=== PATIENT | female | born 1995 | race American Indian/Alaskan Native ===

== ENCOUNTER 2017-04-01 04:09 | Inpatient (IN) | payer OTHER ==
[2017-04-01 04:10] VITALS: BMI 28.8
[2017-04-01] MEDS ORDERED: Sodium Chloride 0.9% 1,000 ML IV STA (04:51)
--- NOTE | 2017-04-01 04:51 | ED PDOC ---
HPI: Abdomen Time Seen by Provider: 04/01/17 04:16 Chief Complaint (Nursing): Abdominal Pain Chief Complaint (Provider): Abdominal Pain History Per: Patient Additional Complaint(s): 21 F with no significant PMH presents to the ED with complaints of severe abdominal pain and nausea at this time. 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 Dr. Asencio was consulted while pt at [facility] and Pt was determined to be stable for discharge at that time. Pt was to follow up with Dr. Asencio tomorrow (now today) to likely be takent o OR if pain continued. Pt states that her symptoms started 3 days ago after she ate out from a restaurant. She states that her pain is lauren umbilical, non radiating, 9/10 in severity. She also had >10 times of non bloody, non bilious vomiting. Denies any fevers, chills, or diarrhea. Denies any roland, dizziness, sob, cp, urinary or bm changes. Past Medical History Reviewed: Nursing Documentation, Vital Signs Vital Signs: Last Vital Signs Temp 98.2 F 04/01/17 04:22 Pulse 60 04/01/17 04:22 Resp 16 04/01/17 04:22 BP 115/58 L 04/01/17 04:22 Pulse Ox 99 04/01/17 04:22 - Medical History PMH: No Chronic Diseases - Surgical History Surgical History: No Surg Hx - Family History Family History: States: No Known Family Hx - Living Arrangements Living Arrangements: With Family - Social History Current smoker - smoking cessation education provided: No Alcohol: Social Drugs: Denies - Immunization History Hx Tetanus Toxoid Vaccination: No Hx Influenza Vaccination: No Hx Pneumococcal Vaccination: No - Home Medications Home Medications: Ambulatory Orders Medication Instructions Recorded No Known Home Med 03/31/17 - Allergies Allergies/Adverse Reactions: Allergies Allergy/AdvReac Type Severity Reaction Status Date / Time No Known Allergies Allergy Verified 03/31/17 05:42 Review of Systems ROS Statement: Except As Marked, All Systems Reviewed And Found Negative Gastrointestinal: Positive for: Nausea, Vomiting, Abdominal Pain Physical Exam - Reviewed Nursing Documentation Reviewed: Yes Vital Signs Reviewed: Yes - Physical Exam Appears: Positive for: Non-toxic, No Acute Distress, Uncomfortable Head Exam: Positive for: ATRAUMATIC, NORMAL INSPECTION, NORMOCEPHALIC Skin: Positive for: Normal Color, Warm, DRY Eye Exam: Positive for: EOMI, Normal appearance, PERRL ENT: Positive for: Normal ENT Inspection Neck: Positive for: Normal, Painless ROM Cardiovascular/Chest: Positive for: Regular Rate, Rhythm Respiratory: Positive for: CNT, Normal Breath Sounds Gastrointestinal/Abdominal: Positive for: Bowel Sounds, Soft, Tenderness (Lauren umbilical and LLQ). Negative for: Distended, Guarding Back: Positive for: Normal Inspection Extremity: Positive for: Normal ROM Neurologic/Psych: Positive for: Alert, Oriented - ECG O2 Sat by Pulse Oximetry: 99 Medical Decision Making Medical Decision Making: IV access established and treatment initiated with IVF, Zofran and Morphine Pt last ate around 23:30 last night, advised to remain NPO at this time. Diagnostics ordered including US to r/o Ovarian Torsion Case discussed with mother superior on-call, Dr. Asencio, who advised admission at this time with OR later in the am. FP resident presented to ED for bedside exam and to arrange admission Disposition - Clinical Impression Clinical Impression: Teratoma, Abdominal pain - Patient ED Disposition Is Patient to be Admitted: Yes - Disposition Disposition Time: 04:59 Condition: STABLE - Pt Status Changed To: Hospital Disposition Of: Inpatient - Admit Certification Admit to Inpatient:: After my assessment, the patient will require hospitalization for at least two midnights. This is because of the severity of symptoms shown, intensity of services needed, and/or the medical risk in this patient being treated as an outpatient. - POA Present On Arrival: None
[2017-04-01 05:29] LABS: BASO % 0.3 % (0.0-2.0); HEMATOCRIT 32.8 % (34.0-47.0); LYMPH % 7.1 % (20.0-40.0); MEAN CELL VOLUME 81.8 fl (81.0-99.0); MEAN CORPUSCULAR HEMOGLOBIN 25.8 pg (27.0-31.0); MEAN CORPUSCULAR HGB CONC 31.5 g/dL (33.0-37.0); MEAN PLATELET VOLUME 10.7 fl (7.2-11.7); MONO # 1.2 K/uL (0.0-0.8); MONO % 8.7 % (0.0-10.0); NEUT # 11.8 K/uL (1.8-7.0); NEUT % 83.9 % (50.0-75.0); PLATELET COUNT 280 K/uL (130-400); RED CELL DISTRIBUTION WIDTH 13.3 % (11.5-14.5)
--- NOTE | 2017-04-01 05:32 | CP.PCM.HP ---
<Keo Paulson - Last Filed: 04/01/17 05:57> History of Present Illness - History of Present Illness History of Present Illness: - 21 YO F presents to the ER w/ severe abdominal pain. Pain is "twisting" in nature. Starts from the right lower quadrant to the epigastric region of the stomach. Patient quantifies the pain as a 9/10, but does not appear in distress. Patient states that the pain started 3 days ago after she at out at a restaurant. At home patient states she had > 10 episodes of nausea and vomiting. Vomit was non bloody non billious. She has been able to tolerate PO intake of soups and keep it down. Denies any fever, diarrhea. - She had initially went to [facility] last night and was found to have a [address] scan. She had been discharged and was advised to follow up in the morning in [place] w/ Dr. Asencio if pain continued. Pt claims she was given antibiotics from [facility] and took two of the pills but can not recall the name. She also took 2 ibuprofens which did not provide any relief. She also has had constipation for the last two days, where as normally she has regular bowl movements. - Her last meal was at 10pm last night, since then she has not had anything. PMH: None PSH: None Allergy: None Medicine: None F/H: DM in mother S/H: Alcohol socially, Marijuana regularly, one joint a day. Sexually active with one partner currently, inconsistency uses condoms. Denies any history of sexually transmitted diseases. Has regular menstral periods. LMP was 02/28/17. ER course: - NPO - Morphine 4mg - Zofran 4mg - IV fluids - BHCG - CMP - PT/PTT/INR - Transvagnal U/S Present on Admission - Present on Admission Any Indicators Present on Admission: No Past Patient History - Infectious Disease Hx of Infectious Diseases: None - Past Social History Alcohol: Social Drugs: Cannabis - PSYCHIATRIC Hx Substance Use: No - SURGICAL HISTORY Hx Surgeries: No - ANESTHESIA Hx Anesthesia: No Meds Allergies/Adverse Reactions: Allergies Allergy/AdvReac Type Severity Reaction Status Date / Time No Known Allergies Allergy Verified 03/31/17 05:42 Physical Exam - Constitutional Appears: No Acute Distress, Agitated - Head Exam Head Exam: NORMAL INSPECTION - Eye Exam Eye Exam: EOMI, Normal appearance, PERRL - Neck Exam Neck exam: Positive for: Normal Inspection - Respiratory Exam Respiratory Exam: Clear to Auscultation Bilateral, NORMAL BREATHING PATTERN. absent: Rales, Rhonchi, Wheezes - Cardiovascular Exam Cardiovascular Exam: REGULAR RHYTHM, +S1, +S2 - GI/Abdominal Exam GI & Abdominal Exam: Normal Bowel Sounds, Soft, Tenderness (Chi[place] umbilical and right lower quadrant tenderness) - Neurological Exam Neurological exam: Alert, CN II-XII Intact, Oriented x3 - Psychiatric Exam Psychiatric exam: Normal Affect, Normal Mood - Skin Skin Exam: Normal Color, Warm Results - Vital Signs Recent Vital Signs: Last Vital Signs Temp 98.2 F 04/01/17 04:22 Pulse 60 04/01/17 04:22 Resp 16 04/01/17 04:22 BP 115/58 L 04/01/17 04:22 Pulse Ox 99 04/01/17 04:59 - Labs Result Diagrams: 04/01/17 05:00 04/01/17 05:00 Assessment & Plan - Assessment and Plan (Free Text) Assessment: 21 YO F who was recently found to have a teratoma is here complaining of severe abdominal pain and vomiting. 1) Abdominal Pain - Most likely secondary to teratoma - NPO - IV access - Surgery scheduled for AM - F/U with labs and imaging studies * Case has been discussed with Dr. Asencio <Lisbeth Asencio - Last Filed: 04/01/17 10:38> Results - Vital Signs Recent Vital Signs: Last Vital Signs Temp 98.2 F 04/01/17 04:22 Pulse 60 04/01/17 04:22 Resp 16 04/01/17 04:22 BP 115/58 L 04/01/17 04:22 Pulse Ox 99 04/01/17 04:59 - Labs Result Diagrams: 04/01/17 05:00 04/01/17 05:00 Labs: Laboratory Results - last 24 hr 04/01/17 04/01/17 04/01/17 05:00 05:00 05:00 WBC 14.0 H RBC 4.01 Hgb 10.3 L Hct 32.8 L MCV 81.8 MCH 25.8 L MCHC 31.5 L RDW 13.3 Plt Count 280 MPV 10.7 Neut % (Auto) 83.9 H Lymph % (Auto) 7.1 L [place] % (Auto) 8.7 Eos % (Auto) 0.0 Baso % (Auto) 0.3 Neut # 11.8 H Lymph # 1.0 [place] # 1.2 H Eos # 0.0 Baso # 0.0 PT INR APTT Sodium 138 Potassium 3.8 Chloride 103 Carbon Dioxide 24 Anion Gap 15 BUN 12 Creatinine 0.6 L Est GFR ( Amer) > 60 Est GFR (Non-Af Amer) > 60 Random Glucose 102 Calcium 9.1 Total Bilirubin 0.5 AST 25 ALT 31 Alkaline Phosphatase 70 Total Protein 7.5 Albumin 4.1 Globulin 3.4 Albumin/Globulin Ratio 1.2 Beta HCG, Quant < 2.39 Blood Type O POSITIVE Antibody Screen Negative BBK History Checked No verified bt 04/01/17 05:00 WBC RBC Hgb Hct MCV MCH MCHC RDW Plt Count MPV Neut % (Auto) Lymph % (Auto) [place] % (Auto) Eos % (Auto) Baso % (Auto) Neut # Lymph # [place] # Eos # Baso # PT 11.2 INR 1.08 APTT 31.9 Sodium Potassium Chloride Carbon Dioxide Anion Gap BUN Creatinine Est GFR ( Amer) Est GFR (Non-Af Amer) Random Glucose Calcium Total Bilirubin AST ALT Alkaline Phosphatase Total Protein Albumin Globulin Albumin/Globulin Ratio Beta HCG, Quant Blood Type Antibody Screen BBK History Checked Assessment & Plan - Assessment and Plan (Free Text) Assessment: OB Hospitalist Addendum: 21 yo G0 LMP around 02/28/2017 w/ right-sided abdominal pain w/ a 9.3 cm ovarian teratoma seen on CT scan and pelvic u/s. Pt admitted and the plan is to take the pt to the OR for laparoscopic cystectomy, possible salpingo-oophorectomy, possible laparotomy. Plan discussed with the pt and her family. All questions answered. Consents signed. (ES)
[2017-04-01 05:38] LABS: ALB/GLOB RATIO 1.2 (1.0-2.1); ALKALINE PHOSPHATASE 70 U/L (38-126); ALT/SGPT 31 U/L (9-52); AST/SGOT 25 U/L (14-36); BILIRUBIN,TOTAL 0.5 mg/dl (0.2-1.3); BLOOD UREA NITROGEN 12 mg/dl (7-17); CALCIUM 9.1 mg/dL (8.4-10.2); CARBON DIOXIDE 24 mmol/L (22-30); CHLORIDE 103 mmol/L (98-107); GFR AFRICAN-AMERICAN > 60; GLUCOSE,RANDOM 102 mg/dL (65-105); POTASSIUM 3.8 MMOL/L (3.6-5.0); SODIUM 138 mmol/l (132-148); TOTAL PROTEIN 7.5 G/DL (6.3-8.2)
[2017-04-01 05:49] LABS: PARTIAL THROMBOPLASTIN TIME 31.9 SECONDS (23.3-32.5)
[2017-04-01 07:30] LABS: NEUTROPHIL 81 % (42-75); TOTAL CELLS COUNTED 100
[2017-04-01 07:31] LABS: LARGE PLATELETS PRESENT
--- NOTE | 2017-04-01 07:36 | US ---
EXAM: US Pelvis, Transvaginal CLINICAL HISTORY: 21 years old, female; Pain; Pelvic pain; Additional info: R/O torsion TECHNIQUE: Real-time transvaginal pelvic ultrasound (complete) with image documentation. Transvaginal imaging was used for better evaluation of the endometrium and adnexa. EXAM DATE/TIME: 04/01/2017 4:48 AM COMPARISON: CT - ABD PELVIS IV CONTRAST ONLY 03/31/2017 7:08:11 AM FINDINGS: Uterus/cervix: Anteverted uterus measures 6 point a 3.8 x 2.7 cm. Endometrium measures 1.1 cm in thickness. No myometrial mass. Right ovary: Right ovary measures 3.8 x 3.9 1.8 cm. Subcentimeter follicles. Eccentric echogenic focus of about 1.5 x 1.6 cm. Normal blood flow. Left ovary: Left ovary not visualized. Cystic structure in midline and to the left on transabdominal images of about 2.2 cm. Appears eccentrically located in a larger complex structure. Cystic lesion not clearly identified endovaginally. On endovaginal study, there is a mostly echogenic, nonvascular structure estimate about 9 x 7 cm. Poorly defined posterior and lateral margins. Free fluid: Small to moderate amount of fluid in cul-de-sac and right adnexa. Low level echoes within the fluid. Bladder: Empty bladder which cannot be evaluated with this probe. IMPRESSION: 1. Poorly demonstrated complex pelvic mass, corresponding to large dermoid on CT, better defined by CT. 2. Echogenic free fluid, hemorrhagic, similar to the CT findings. 3. Eccentric echogenic focus in the right ovary, may be hemorrhagic cyst or involuting follicle. Given other sonographic and CT findings, may represent hematoma. 4. Nonvisualization of left ovary.
[2017-04-01] MEDS ORDERED: Propofol 10 mg/ml Inj (20 ML) ONE (10:00)
[2017-04-01] MEDS ORDERED: Midazolam 2 MG/2 ML VIAL ONE (10:00)
[2017-04-01] MEDS ORDERED: Rocuronium 10 mg/ml (5 ml) ONE (10:00)
[2017-04-01] MEDS ORDERED: Lidocaine 4% (Laryng-O-Jet) Kit MM ONE (10:04)
[2017-04-01] MEDS ORDERED: Sevoflurane - Inhalation Anesthetic Liq (250 ml) ONE (11:05)
[2017-04-01] MEDS ORDERED: Bupivacaine 0.5% Inj(30mL) ONE (11:19)
[2017-04-01] MEDS ORDERED: Dexamethasone 4 mg/1 ml ONE (11:20)
[2017-04-01] MEDS ORDERED: Neostigmine Methylsulfate 3mg/3ml Syringe IV ONE (12:26)
[2017-04-01] MEDS ORDERED: Lactated Ringer's 1,000 ML IV ONE ×4 (12:27→14:45)
[2017-04-01] MEDS ORDERED: Sodium Chloride 0.9% 1,000 ML IV ONE (12:31)
[2017-04-01] MEDS ORDERED: HYDROmorphone 0.5 mg/0.5 ml ISec ONE (13:30)
[2017-04-01] MEDS ORDERED: HYDROmorphone 0.5 mg/0.5 ml ISec IVP PRN (13:35)
[2017-04-01] MEDS ORDERED: HYDROmorphone 0.5 mg/0.5 ml ISec IVP ONE (13:55)
[2017-04-01] MEDS ORDERED: Lactated Ringer's 1,000 ML IV SCH (15:15)
--- NOTE | 2017-04-01 20:05 | OP ---
PROCEDURE DATE: 04/01/2017 PREOPERATIVE DIAGNOSES: This is a 21-year-old G0 with right-sided abdominal pain with a 9 cm dermoid cyst seen on CT scan. POSTOPERATIVE DIAGNOSES: Right ovarian dermoid, right adnexal necrosis secondary to right ovarian torsion. PROCEDURE: An attempted laparoscopy, converted to an open right salpingo- oophorectomy. COMPLICATIONS: None. ESTIMATED BLOOD LOSS: About 25 mL. SURGEON: Artie Asencio MD [employer]: Dr. Shepard the hospitalist. Dr. Shepard was the surgical specialist and participated in the surgery for the entire duration of the case. She helped create exposure. She also helped maintain hemostasis, operated throughout the case on the side of the patient that was across from her. This case could not have been completed without her assistance SECOND [employer]: Dr. Yuly Gracia, PGY-1 FINDINGS: A normal appearing uterus, sounded to about 3 inches, normal appearing left ovary and tube, a large congested, necrotic-appearing purplish- red right ovarian mass and tube. The mass was about 13 cm in its largest diameter. The patient had multiple pink ulcerated lesions on her labia and in her groin area as well as under her breasts. DESCRIPTION OF PROCEDURE: The patient was taken to the operating room with IV running and placed in the dorsal supine position. She was placed under general anesthesia. She was then prepped and draped in the usual sterile fashion in the dorsal lithotomy position. A time-out had been done. A speculum was then placed in the vagina and a tenaculum was placed at the anterior lip of the cervix. The cervix was then gently dilated and sounded to about 3 inches. The uterine manipulator was placed into the uterus. Attention was then turned to the patient's abdomen. Following the injection of 0.5 percent Marcaine, a 5 mm vertical incision was placed infraumbilically The Veress needle was introduced into the peritoneum. Placement of the needle was confirmed using the saline drop method. Pneumoperitoneum was established by insufflating the abdomen to 18 mmHg. The laparoscopic sheath and trocar were then placed into the abdominal cavity. The trocar was removed and the laparoscope was inserted. A large purplish mass dominating the entire view was visualized and it was decided to convert the case to a laparotomy. Pneumoperitoneum was evacuated. All instruments were removed from the abdomen. A Pfannenstiel skin incision was then made with the scalpel and carried through to the underlying layer of fascia with the Bovie. The fascia was incised in the midline and the incision was extended laterally with the Bovie. The inferior aspect of the fascial incision was grasped with the Jacque clamps, elevated, and the underlying rectus muscles were dissected bluntly and with the Decker scissors. Attention was then turned to the superior aspect of this incision, which in a similar fashion was grasped, tented up with the Jacque clamps and the rectus muscles were dissected off bluntly and with the Bovie. The rectus muscles were then in the midline and the peritoneum was entered digitally. The peritoneal incision was extended so that the large mass could be delivered through the incision. Pelvic washings were collected and sent to pathology. Two Nikolas clamps were then placed across the large pedicle of the right adnexa. The mass was then removed using a scalpel. The pedicle was suture suture-ligated a few times with 0 Vicryl. Hemostasis was noted. The uterus and the left adnexa were then examined. The abdomen was well irrigated. The fascia was then closed with 0 Vicryl. The subcutaneous fat was well irrigated. The Bovie was applied to small bleeders. The space of the fat was then closed with a running stitch of 2-0 plain gut. The skin was then closed in a subcuticular fashion using 4-0 Monocryl. The umbilical incision was approximated w/ Dermabond. The patient received 2 grams of Ancef when the case was converted to a laparotomy. The patient tolerated the procedure well. Sponge, lap, and needle counts were correct. The patient was taken to the recovery room in stable condition. Artie Asencio MD cc: [id number] TT: 04/01/2017 20:04:53 toan CROWLEY
[2017-04-02 00:38] VITALS: RESP 20
[2017-04-02 08:04] VITALS: BP 121/73; PULSE 71; TEMP 97.9; O2SAT 100
[2017-04-02] MEDS ORDERED: Oxycodone/Acetaminophen 5/325 mg Tab PO PRN ×2 (09:03)
[2017-04-02 11:02] LABS: BASO % 0.3 % (0.0-2.0); EOS % 0.1 % (0.0-4.0); HEMATOCRIT 26.6 % (34.0-47.0); LYMPH # 1.7 K/uL (1.0-4.3); LYMPH % 11.4 % (20.0-40.0); MEAN CORPUSCULAR HEMOGLOBIN 25.7 pg (27.0-31.0); MEAN CORPUSCULAR HGB CONC 31.3 g/dL (33.0-37.0); MEAN PLATELET VOLUME 10.4 fl (7.2-11.7); MONO # 1.6 K/uL (0.0-0.8); MONO % 10.6 % (0.0-10.0); NEUT # 11.9 K/uL (1.8-7.0); NEUT % 77.6 % (50.0-75.0); RED CELL DISTRIBUTION WIDTH 13.5 % (11.5-14.5); WHITE BLOOD COUNT 15.3 K/uL (4.8-10.8)
--- NOTE | 2017-04-02 11:25 | CP.PCM.PN ---
<Luiza Elaine - Last Filed: 04/02/17 11:21> Subjective - Date & Time of Evaluation Date of Evaluation: 04/02/17 Time of Evaluation: 09:00 - Subjective Subjective: POD # 1 Patient seen and examined at bedside. Reports pain managed with medication, has flatus, denies bowel movement. Normal urine output into tolliver catheter with 77 ml/hr documented overnight-clear yellow. Patient is tolerating liquid diet. Denies nausea, vomiting, SOB, chest pain, weakness, dizziness or headache. Reports she has an appetite this AM. She has no other concerns or complaints at this time. Objective - Vital Signs/Intake and Output Vital Signs (last 24 hours): Temp Pulse Resp BP Pulse Ox 97.9 F 71 20 121/73 100 04/02/17 08:02 04/02/17 08:02 04/02/17 08:02 04/02/17 08:02 04/02/17 08:02 Intake and Output: 04/02/17 04/02/17 06:59 18:59 Intake Total 1000 Output Total 1150 Balance -150 - Medications Medications: Current Medications Ibuprofen (Motrin Tab) 600 mg PO Q6 PRN PRN Reason: pain 1-3 Ondansetron HCl (Zofran Inj) 4 mg IVP Q6 PRN PRN Reason: Nausea/Vomiting Oxycodone/Acetaminophen (Percocet 5/325 Mg Tab) 1 tab PO Q4 PRN PRN Reason: pain 4-7 Stop: 04/05/17 09:04 Oxycodone/Acetaminophen (Percocet 5/325 Mg Tab) 2 tab PO Q4 PRN PRN Reason: pain 8-10 Stop: 04/05/17 09:04 - Labs Labs: 04/02/17 10:55 04/01/17 05:00 PT 11.2 SECONDS (9.6-11.2) 04/01/17 05:00 INR 1.08 (0.92-1.08) 04/01/17 05:00 APTT 31.9 SECONDS (23.3-32.5) 04/01/17 05:00 - Constitutional Appears: Well, Non-toxic, No Acute Distress - Head Exam Head Exam: ATRAUMATIC, NORMOCEPHALIC - Eye Exam Eye Exam: EOMI. absent: Scleral icterus - ENT Exam ENT Exam: Mucous Membranes Moist - Neck Exam Neck Exam: Full ROM - Respiratory Exam Respiratory Exam: Clear to Ausculation Bilateral, NORMAL BREATHING PATTERN - Cardiovascular Exam Cardiovascular Exam: REGULAR RHYTHM, +S1, +S2. absent: Gallop, Rubs, Murmur - GI/Abdominal Exam GI & Abdominal Exam: Soft, Tenderness (mild tenderness to palpation near lower abdominal incision which was clean/dry/intact), Normal Bowel Sounds - Extremities Exam Extremities Exam: Full ROM. absent: Pedal Edema - Back Exam Back Exam: absent: CVA tenderness (L), CVA tenderness (R) - Neurological Exam Neurological Exam: Alert, Awake, CN II-XII Intact, Oriented x3 - Psychiatric Exam Psychiatric exam: Normal Affect, Normal Mood - Skin Skin Exam: Dry, Intact Assessment and Plan - Assessment and Plan (Free Text) Assessment: A: 21 yr old G0 s/p Open right salpingo-oophorectomy POD #1, asymptomatic anemia (Hgb 8.3 this AM), tolerating PO diet Plan: P: -Pain management with Percocet and Motrin PRN -Discontinue tolliver -Bed to chair, encouraged ambulation as tolerated -Regular diet -D/c IV fluids -Heplock -Patient may be discharged once pain is controlled, is tolerating regular PO diet, ambulating without difficulty (prescriptions in chart Motrin 600mg PO Q6 PO PRN mild pain, Percocet 5/325mg PO Q4 PRN moderate pain disp # 20 tabs, Ferrous sulfate 325 mg PO once daily, follow up with your obgyn of choice within 2 weeks) <Lisbeth Asencio - Last Filed: 04/02/17 23:02> Objective - Vital Signs/Intake and Output Vital Signs (last 24 hours): Temp Pulse Resp BP Pulse Ox 97.9 F 71 20 121/73 100 04/02/17 08:02 04/02/17 08:02 04/02/17 08:02 04/02/17 08:02 04/02/17 08:02 - Labs Labs: 04/02/17 10:55 04/01/17 05:00 PT 11.2 SECONDS (9.6-11.2) 04/01/17 05:00 INR 1.08 (0.92-1.08) 04/01/17 05:00 APTT 31.9 SECONDS (23.3-32.5) 04/01/17 05:00 Assessment and Plan - Assessment and Plan (Free Text) Plan: OB Addendum: Pt seen and examined by me. Agree w/ above. POD 1 s/p L/s converted to open RSO for large necrotic right ovarian mass, doing well. Encouraged OOB. Pt may be advanced to regular diet as tolerated. Pt likely to be discharged home today. Rx's motrin, percocet, and ferrous sulfate placed in the chart. (ES)
--- NOTE | 2017-04-02 14:24 | CP.PCM.DIS ---
Provider - Provider Date of Admission: 04/01/17 04:50 Attending physician: Lisbeth Asencio MD Primary care physician: Dr. Diehl Time Spent in preparation of Discharge (in minutes): 30 Diagnosis - Discharge Diagnosis (1) Dermoid cyst of right ovary Status: Resolved Priority: Medium Hospital Course - Lab Results Lab Results: Most Recent Lab Values WBC 15.3 K/uL (4.8-10.8) H 04/02/17 10:55 RBC 3.25 Mil/uL (3.80-5.20) L 04/02/17 10:55 Hgb 8.3 g/dL (12.0-16.0) L D 04/02/17 10:55 Hct 26.6 % (34.0-47.0) L 04/02/17 10:55 MCV 82.0 fl (81.0-99.0) 04/02/17 10:55 MCH 25.7 pg (27.0-31.0) L 04/02/17 10:55 MCHC 31.3 g/dL (33.0-37.0) L 04/02/17 10:55 RDW 13.5 % (11.5-14.5) 04/02/17 10:55 Plt Count 249 K/uL (130-400) 04/02/17 10:55 MPV 10.4 fl (7.2-11.7) 04/02/17 10:55 Neut % (Auto) 77.6 % (50.0-75.0) H 04/02/17 10:55 Lymph % (Auto) 11.4 % (20.0-40.0) L 04/02/17 10:55 [place] % (Auto) 10.6 % (0.0-10.0) H 04/02/17 10:55 Eos % (Auto) 0.1 % (0.0-4.0) 04/02/17 10:55 Baso % (Auto) 0.3 % (0.0-2.0) 04/02/17 10:55 Neut # 11.9 K/uL (1.8-7.0) H 04/02/17 10:55 Lymph # 1.7 K/uL (1.0-4.3) 04/02/17 10:55 [place] # 1.6 K/uL (0.0-0.8) H 04/02/17 10:55 Eos # 0.0 K/uL (0.0-0.7) 04/02/17 10:55 Baso # 0.0 K/uL (0.0-0.2) 04/02/17 10:55 Neutrophils % (Manual) 81 % (42-75) H 04/01/17 05:00 Lymphocytes % (Manual) 10 % (20-50) L 04/01/17 05:00 Monocytes % (Manual) 9 % (0-10) 04/01/17 05:00 Platelet Estimate Normal (NORMAL) 04/01/17 05:00 Large Platelets Present 04/01/17 05:00 RBC Morphology Normal (NORMAL) 04/01/17 05:00 PT 11.2 SECONDS (9.6-11.2) 04/01/17 05:00 INR 1.08 (0.92-1.08) 04/01/17 05:00 APTT 31.9 SECONDS (23.3-32.5) 04/01/17 05:00 Sodium 138 mmol/l (132-148) 04/01/17 05:00 Potassium 3.8 MMOL/L (3.6-5.0) 04/01/17 05:00 Chloride 103 mmol/L (98-107) 04/01/17 05:00 Carbon Dioxide 24 mmol/L (22-30) 04/01/17 05:00 Anion Gap 15 (10-20) 04/01/17 05:00 BUN 12 mg/dl (7-17) 04/01/17 05:00 Creatinine 0.6 mg/dL (0.7-1.2) L 04/01/17 05:00 Est GFR ( Amer) > 60 04/01/17 05:00 Est GFR (Non-Af Amer) > 60 04/01/17 05:00 Random Glucose 102 mg/dL (65-105) 04/01/17 05:00 Calcium 9.1 mg/dL (8.4-10.2) 04/01/17 05:00 Total Bilirubin 0.5 mg/dl (0.2-1.3) 04/01/17 05:00 AST 25 U/L (14-36) 04/01/17 05:00 ALT 31 U/L (9-52) 04/01/17 05:00 Alkaline Phosphatase 70 U/L (38-126) 04/01/17 05:00 Total Protein 7.5 G/DL (6.3-8.2) 04/01/17 05:00 Albumin 4.1 g/dL (3.5-5.0) 04/01/17 05:00 Globulin 3.4 gm/dL (2.2-3.9) 04/01/17 05:00 Albumin/Globulin Ratio 1.2 (1.0-2.1) 04/01/17 05:00 Beta HCG, Quant < 2.39 mIU/mL 04/01/17 05:00 Blood Type O POSITIVE 04/01/17 05:00 Antibody Screen Negative 04/01/17 05:00 Crossmatch See Detail 04/01/17 05:00 BBK History Checked No verified bt 04/01/17 05:00 - Hospital Course Hospital Course: 21 yr old F G0 today POD # 1 s/p right salpingo-oophorectomy who presented to [facility] ER on 04/01/17 with severe abdominal pain and nausea. 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 At [facility] patient was taken to OR and a laparoscopic removal of the teratoma was attempted, however, due to the mass dominating the entire field of vision, the procedure was converted to an open right salpingo-oophorectomy. Patient had normal recovery after the procedure, today is tolerating PO diet, ambulating without difficulty, pain tolerated with medication, and with no concerns or complaints at this time. Patient will follow up with her obgyn and PCP as outpatient within 2 weeks. - Date & Time of H&P Date of H&P: 04/01/17 Time of H&P: 05:20 Discharge Exam - Head Exam Head Exam: ATRAUMATIC, NORMOCEPHALIC - Eye Exam Eye Exam: EOMI, Normal appearance - ENT Exam ENT Exam: Mucous Membranes Moist - Neck Exam Neck exam: Full Rom - Respiratory Exam Respiratory Exam: Clear to PA & Lateral, NORMAL BREATHING PATTERN - Cardiovascular Exam Cardiovascular Exam: REGULAR RHYTHM, RRR, +S1, +S2 - GI/Abdominal Exam GI & Abdominal Exam: Normal Bowel Sounds, Soft, Tenderness (mild tenderness to palpation in area surrounding lower abd incision which is clean/dry/intact) - Extremities Exam Extremities exam: full ROM (no pedal edema) - Back Exam Back exam: FULL ROM. absent: CVA tenderness (L), CVA tenderness (R) - Neurological Exam Neurological exam: Alert, CN II-XII Intact, Oriented x3 - Psychiatric Exam Psychiatric exam: Normal Affect, Normal Mood - Skin Skin Exam: Dry, Intact, Warm Discharge Plan - Discharge Medications Prescriptions: Ferrous Sulfate 325 mg PO DAILY #60 tablet Ibuprofen [Motrin Tab] 600 mg PO Q6 PRN #30 tab PRN Reason: pain 1-3 oxyCODONE/Acetaminophen [Percocet 5/325 mg Tab] 1 tab PO Q4 PRN #30 tab PRN Reason: pain 4-7 - Follow Up Plan Condition: STABLE Disposition: HOME/ ROUTINE Instructions: Anemia (DC), Salpingo-oophorectomy (DC) Additional Instructions: -Regular diet -No exercise, no heavy lifting, nothing in the vagina -Pain management PRN , Rx for Motrin 600mg PO Q6 PO PRN mild pain disp # 30 tabs , Percocet 5/325mg PO Q4 PRN moderate pain disp # 30 tabs -Take Ferrous sulfate 325 mg PO once daily -follow up with your obgyn of choice within 2 weeks Referrals: Edgardo Diehl MD [Medical Doctor] -
--- NOTE | 2017-04-04 07:35 | PQF ANEMIA ---
This form is a permanent part of the medical record 04/04/17 Dr. Asencio, Would you please further clarify the Type/Etiology of Anemia if known. See physician response below. Clarification of your documentation is requested to better reflect the severity of illness and intensity of treatment of your patient. Indicators present [x] Anemia [x] Drop in H&H from []___ to []___ [] Hypotension [] GI Bleed [] Transfusion(s) [] Acute bleed other sites [] Tachycardia [x] Surgical Procedure Blood Loss 25 cc (expected not a complication) Other:[] Location in the medical record that reflects the above clinical findings: [] Treatment Provided: [x] Ferrous Sulfate on discharge PHYSICIAN'S RESPONSE Based on your medical judgment of the clinical indicators outlined above, are you treating this patient for a known or suspected: [] Acute blood loss anemia [] Chronic blood loss anemia [] Acute on Chronic blood loss anemia [] Anemia due to malignancy [] Anemia due to chemotherapy or radiation therapy [] Anemia of Chronic Disease, please specify: [] [] Other, please indicate type of anemia []____ [] If Unable to Determine, please check the box, sign and date. Present On Admission (POA) Indicator: [] Present at the time of admission [] Not present at the time of admission [] Clinically Undetermined In responding to this query, please exercise your independent professional judgment. The fact that a question is asked does not imply that any particular answer is desired or expected. Thank you for your clarification on this documentation. If you have any questions please call:extension [phone] Medical Records Dept * Thank you, Tabby Thomas RN CDMP MTDD
--- NOTE | 2017-04-04 12:53 | HP ---
<Keo Paulson - Last Filed: 04/01/17 05:57> History of Present Illness - History of Present Illness History of Present Illness: - 21 YO F presents to the ER w/ severe abdominal pain. Pain is "twisting" in nature. Starts from the right lower quadrant to the epigastric region of the stomach. Patient quantifies the pain as a 9/10, but does not appear in distress. Patient states that the pain started 3 days ago after she at out at a restaurant. At home patient states she had > 10 episodes of nausea and vomiting. Vomit was non bloody non billious. She has been able to tolerate PO intake of soups and keep it down. Denies any fever, diarrhea. - She had initially went to [facility] last night and was found to have a [address] scan. She had been discharged and was advised to follow up in the morning in [place] w/ Dr. Asencio if pain continued. Pt claims she was given antibiotics from [facility] and took two of the pills but can not recall the name. She also took 2 ibuprofens which did not provide any relief. She also has had constipation for the last two days, where as normally she has regular bowl movements. - Her last meal was at 10pm last night, since then she has not had anything. PMH: None PSH: None Allergy: None Medicine: None F/H: DM in mother S/H: Alcohol socially, Marijuana regularly, one joint a day. Sexually active with one partner currently, inconsistency uses condoms. Denies any history of sexually transmitted diseases. Has regular menstral periods. LMP was 02/28/17. ER course: - NPO - Morphine 4mg - Zofran 4mg - IV fluids - BHCG - CMP - PT/PTT/INR - Transvagnal U/S Present on Admission - Present on Admission Any Indicators Present on Admission: No Past Patient History - Infectious Disease Hx of Infectious Diseases: None - Past Social History Alcohol: Social Drugs: Cannabis - PSYCHIATRIC Hx Substance Use: No - SURGICAL HISTORY Hx Surgeries: No - ANESTHESIA Hx Anesthesia: No Meds Allergies/Adverse Reactions: Allergies Allergy/AdvReac Type Severity Reaction Status Date / Time No Known Allergies Allergy Verified 03/31/17 05:42 Physical Exam - Constitutional Appears: No Acute Distress, Agitated - Head Exam Head Exam: NORMAL INSPECTION - Eye Exam Eye Exam: EOMI, Normal appearance, PERRL - Neck Exam Neck exam: Positive for: Normal Inspection - Respiratory Exam Respiratory Exam: Clear to Auscultation Bilateral, NORMAL BREATHING PATTERN. absent: Rales, Rhonchi, Wheezes - Cardiovascular Exam Cardiovascular Exam: REGULAR RHYTHM, +S1, +S2 - GI/Abdominal Exam GI & Abdominal Exam: Normal Bowel Sounds, Soft, Tenderness (Chioma umbilical and right lower quadrant tenderness) - Neurological Exam Neurological exam: Alert, CN II-XII Intact, Oriented x3 - Psychiatric Exam Psychiatric exam: Normal Affect, Normal Mood - Skin Skin Exam: Normal Color, Warm Results - Vital Signs Recent Vital Signs: Last Vital Signs Temp 98.2 F 04/01/17 04:22 Pulse 60 04/01/17 04:22 Resp 16 04/01/17 04:22 BP 115/58 L 04/01/17 04:22 Pulse Ox 99 04/01/17 04:59 - Labs Result Diagrams: 04/01/17 05:00 04/01/17 05:00 Assessment & Plan - Assessment and Plan (Free Text) Assessment: 21 YO F who was recently found to have a teratoma is here complaining of severe abdominal pain and vomiting. 1) Abdominal Pain - Most likely secondary to teratoma - NPO - IV access - Surgery scheduled for AM - F/U with labs and imaging studies * Case has been discussed with Dr. Asencio <Lisbeth Asencio - Last Filed: 04/01/17 10:38> Results - Vital Signs Recent Vital Signs: Last Vital Signs Temp 98.2 F 04/01/17 04:22 Pulse 60 04/01/17 04:22 Resp 16 04/01/17 04:22 BP 115/58 L 04/01/17 04:22 Pulse Ox 99 04/01/17 04:59 - Labs Result Diagrams: 04/01/17 05:00 04/01/17 05:00 Labs: Laboratory Results - last 24 hr 04/01/17 04/01/17 04/01/17 05:00 05:00 05:00 WBC 14.0 H RBC 4.01 Hgb 10.3 L Hct 32.8 L MCV 81.8 MCH 25.8 L MCHC 31.5 L RDW 13.3 Plt Count 280 MPV 10.7 Neut % (Auto) 83.9 H Lymph % (Auto) 7.1 L [place] % (Auto) 8.7 Eos % (Auto) 0.0 Baso % (Auto) 0.3 Neut # 11.8 H Lymph # 1.0 [place] # 1.2 H Eos # 0.0 Baso # 0.0 PT INR APTT Sodium 138 Potassium 3.8 Chloride 103 Carbon Dioxide 24 Anion Gap 15 BUN 12 Creatinine 0.6 L Est GFR ( Amer) > 60 Est GFR (Non-Af Amer) > 60 Random Glucose 102 Calcium 9.1 Total Bilirubin 0.5 AST 25 ALT 31 Alkaline Phosphatase 70 Total Protein 7.5 Albumin 4.1 Globulin 3.4 Albumin/Globulin Ratio 1.2 Beta HCG, Quant < 2.39 Blood Type O POSITIVE Antibody Screen Negative BBK History Checked No verified bt 04/01/17 05:00 WBC RBC Hgb Hct MCV MCH MCHC RDW Plt Count MPV Neut % (Auto) Lymph % (Auto) [place] % (Auto) Eos % (Auto) Baso % (Auto) Neut # Lymph # [place] # Eos # Baso # PT 11.2 INR 1.08 APTT 31.9 Sodium Potassium Chloride Carbon Dioxide Anion Gap BUN Creatinine Est GFR ( Amer) Est GFR (Non-Af Amer) Random Glucose Calcium Total Bilirubin AST ALT Alkaline Phosphatase Total Protein Albumin Globulin Albumin/Globulin Ratio Beta HCG, Quant Blood Type Antibody Screen BBK History Checked Assessment & Plan - Assessment and Plan (Free Text) Assessment: OB Hospitalist Addendum: 21 yo G0 LMP around 02/28/2017 w/ right-sided abdominal pain w/ a 9.3 cm ovarian teratoma seen on CT scan and pelvic u/s. Pt admitted and the plan is to take the pt to the OR for laparoscopic cystectomy, possible salpingo-oophorectomy, possible laparotomy. Plan discussed with the pt and her family. All questions answered. Consents signed. (ES) Dictated By: Keo Paulson MD Signed By: Keo Paulson MD<<Signature on File>> ADDENDUM I just want to add OB hospitalist addendum that patient was seen and examined by me and I agree with the resident's history and physical note. HISTORY OF PRESENT ILLNESS: This is a 21-year-old G0 with right-sided abdominal pain with a known 9.3 cm ovarian teratoma seen on CT scan the day prior on 03/31/2017 at [facility]. The patient was admitted and the plan was to take the patient to the OR for a laparoscopic cystectomy, possible salpingo-oophorectomy, possible laparotomy. The plan was discussed with the patient and her family. All questions were answered and the consents were signed. Artie Asencio MD cc: [id number] TT: 04/04/2017 12:52:22 beltran [place]
== END 2017-04-02 14:55 | disposition home or self-care (01) | DRG 359 ==
LOC: H.ER 04:09 → H.ERHOLD 04:50 → H.MEDSURG1 09:44
PROVIDERS: ADMIT Obstetrics & Gynecology; ATTEND Obstetrics & Gynecology
PROC: 0UT00ZZ Resection of Right Ovary, Open Approach (ICD-10-PCS; 2017-04-01)
PROC: 0UT50ZZ Resection of Right Fallopian Tube, Open Approach (ICD-10-PCS; principal; 2017-04-01 10:30)
DX: D27.0 Benign neoplasm of right ovary (principal); N83.511 Torsion of right ovary and ovarian pedicle; D64.89 Other specified anemias; Z53.31 Laparoscopic surgical procedure converted to open procedure